=== PATIENT | male | born 1950 | race Caucasian/White ===

== ENCOUNTER → 2018-10-08 | Outpatient (CLI) | payer OTHER | END | disposition home or self-care (01) | LOC: SHCH 15:37 | PROVIDERS: ATTEND Internal Medicine Cardiovascular Disease | DX: I10 Essential (primary) hypertension (principal) | CPT/HCPCS: 93306 ==

== ENCOUNTER 2018-12-17 05:49 | Observation (INO) | payer OTHER | END 2018-12-18 13:10 | disposition home or self-care (01) | LOC: DAH 05:49 → 2DH 10:13 ==

== ENCOUNTER → 2019-09-09 | Outpatient (CLI) | payer OTHER ==
[~2019-09-09] MED LIST: ASPI-555 PO; ATOR10TA69 PO; CALC-866 PO; DIGO125T87 PO; DIPH50CA44 PO; FURO40TA5 PO; IOHEXOL-350 50ML VIAL IV ONE; ISOS30TA6 PO; LEVO5TAB13 PO; LISI1TAB28 PO; METF-444 PO; PANT40TA25 PO; PARO10TA71 PO; POTA-79 PO; RIVA20TA PO; ROSU10TA28 PO
== END | disposition home or self-care (01) ==
LOC: RAH 14:39
PROVIDERS: ATTEND Internal Medicine Critical Care Medicine
DX: R16.2 Hepatomegaly with splenomegaly, not elsewhere classified (principal); M47.815 Spondylosis without myelopathy or radiculopathy, thoracolumbar region; R16.1 Splenomegaly, not elsewhere classified; K76.0 Fatty (change of) liver, not elsewhere classified
CPT/HCPCS: 71260; Q9967

== ENCOUNTER → 2020-04-11 | Outpatient (CLI) | payer OTHER ==
[~2020-04-11] MED LIST changes: +CLOP75TA14 PO; +DIGO125T71 PO; -DIGO125T87 PO; -IOHEXOL-350 50ML VIAL IV ONE; -ROSU10TA28 PO
== END | disposition home or self-care (01) ==
LOC: RAH 09:58
PROVIDERS: ATTEND Internal Medicine Critical Care Medicine
DX: N28.9 Disorder of kidney and ureter, unspecified (principal)
CPT/HCPCS: 76700

== ENCOUNTER → 2020-09-05 | Outpatient (CLI) | payer OTHER ==
[~2020-09-05] MED LIST changes: -ASPI-555 PO; +ASPI-556 PO; -LISI1TAB28 PO; +LISI1TAB51 PO; -PANT40TA25 PO; +PANT40TA54 PO; +REGADENOSON 0.4 MG/5 ML PF SYG IVP SCH
== END | disposition home or self-care (01) ==
LOC: SHCH 08:36
PROVIDERS: ATTEND Internal Medicine Cardiovascular Disease
DX: I50.32 Chronic diastolic (congestive) heart failure (principal); I48.20 Chronic atrial fibrillation, unspecified; R05 Cough; R06.00 Dyspnea, unspecified
CPT/HCPCS: 78452; 93017; 96374; A9500 ×2; J2785

== ENCOUNTER → 2021-11-09 | Outpatient (CLI) | payer OTHER ==
[~2021-11-09] VITALS: Ht 177.8 cm; Wt 92.1 kg
[~2021-11-09] MED LIST changes: -ISOS30TA6 PO; +ISOS30TA92 PO
== END | disposition home or self-care (01) ==
LOC: SHCH 08:21
PROVIDERS: ATTEND Internal Medicine Cardiovascular Disease
DX: R07.9 Chest pain, unspecified (principal); R94.39 Abnormal result of other cardiovascular function study; Z95.0 Presence of cardiac pacemaker
CPT/HCPCS: 78452; 93017; 96374; A9500 ×2; J2785